=== PATIENT | female | born 1940 | race Caucasian/White ===

== ENCOUNTER 2016-10-29 12:55 | Inpatient (IN) | payer MEDICARE, OTHER ==
--- NOTE | ~2016-10-29 | EGD ---
EGD REPORT [facility] [address] [address] NAME: KATIE POTTER : 40 STATUS : ADM IN PAT#: [id number] AGE: 75 ADM/REG DATE : 10/29/16 MR#: [id number] REPORT SERV DATE: 10/31/16 DICTATED BY: ÁNGEL BALDWIN DATE: 10/31/16 REPORT STATUS : Draft [facility]ANS[facility]ED [facility]: [facility] DATE: 10/31/16 Endoscopy Center Patient Name: Katie Potter Date of : 1940 Attending MD: ÁNGEL BALDWIN MD Procedure Date No Time: 10/31/2016 Procedure: Upper GI endoscopy Indications: Nausea with vomiting Referring MD: ÁNGEL PAULINO III Medicines: Monitored Anesthesia Care Complications: No immediate complications. Estimated blood loss: Minimal. Procedure: Pre-Anesthesia Assessment: - ASA Grade Assessment: III - A patient with severe systemic disease. After obtaining informed consent, the endoscope was passed under direct vision. Throughout the procedure, the patient's blood pressure, pulse, and oxygen saturations were monitored continuously. The GIF [id number] was introduced through the mouth, and advanced to the second part of duodenum. The upper GI endoscopy was accomplished without difficulty. The patient tolerated the procedure well. Findings: The examined esophagus was normal. A small hiatus hernia was present. Normal mucosa was found in the entire examined stomach. Biopsies were taken with a cold forceps for Helicobacter pylori testing. Estimated blood loss was minimal. The examined duodenum was normal. Biopsies were taken with a cold forceps for evaluation of celiac disease. Estimated blood loss was minimal. The exam was otherwise without abnormality. Impression: - Hiatus hernia. - Normal mucosa was found in the entire stomach. Biopsied. - Normal examined duodenum. Biopsied. - The examination was otherwise normal. Recommendation: - Return patient to [facility] for [facility] care. - Clear liquid diet today. - Await pathology results. - Perform a small bowel follow through today. EGD REPORT [facility] [address] [place] [address]. [id number] NAME: KATIE POTTER : [birth year] STATUS : ADM IN [facility]#: [id number] AGE: 75 ADM/REG DATE : 10/29/16 MR#: [id number] REPORT SERV DATE: 10/31/16 DICTATED BY: ÁNGEL BALDWIN DATE: 10/31/16 REPORT STATUS : Draft TRANSCRIBED BY: [employer] [facility] DATE: 10/31/16 Procedure Code(s): --- Professional --- 00083, Esophagogastroduodenoscopy, flexible, transoral; with biopsy, single or multiple Diagnosis Code(s): --- Professional --- K44.9, Diaphragmatic hernia without obstruction or gangrene R11.2, Nausea with vomiting, unspecified CPT copyright 2013 [employer]. All rights reserved. The codes documented in this report are preliminary and upon flight engineer helicopter review may be revised to meet current compliance requirements. Ángel Baldwin MD ÁNGEL BALDWIN MD 10/31/2016 7:49 AM This report has been signed electronically. Number of Addenda: 0 Note Initiated On: 10/31/2016 7:18 AM Scope Withdrawal Time 0 hours 0 minutes 0 seconds [address] [place] [address]
--- NOTE | ~2016-10-29 | CN ---
Consultation Report [facility] [address] [place]. [address] NAME: CARLOS POTTER : 40 STATUS : ADM IN PAT#: [id number] AGE: 75 ADM/REG DATE : 10/29/16 MR#: [id number] REPORT SERV DATE: 10/30/16 DICTATED BY: ELIANE SOUZA DATE: 10/30/16 REPORT STATUS : Draft TRANSCRIBED BY: MODL DATE: 10/30/16 GI CONSULTATION DATE OF CONSULTATION: 10/30/2016 REASON FOR CONSULTATION: Evaluation and management of intractable nausea, vomiting, weight loss. HISTORY OF PRESENT ILLNESS: Ms. Potter is a very pleasant 75-year-old female patient, who is known to Dr. Clark Sorenson in the outpatient setting, who presents to [facility] with the above complaints. She was seen at her primary care physician's office, Dr. Gutierres, yesterday secondary to nausea and vomiting with an ongoing evaluation by her primary care physician thus far being inconclusive. She reports that she has had chronic intermittent nausea since 12/2015, which she states began shortly after beginning radiation therapy secondary to right breast cancer. Within the last month, she has had a negative CT scan done by Dr. Gutierres in the outpatient setting. She had a gastric emptying study, which showed that she had abnormal emptying up to three hours; however, in the fourth hour, it was reported as normal. She had an abdominal x-ray on admission here, which showed a nonspecific bowel gas pattern, question some mild aerophagia as well as questionable gastroenteritis. She states that she has had a 10-pound weight loss over the last several months. She denies any fever or chills. She has chronic constipation, which she takes daily stool softeners for. She denies any associated abdominal pain. She states she has some soreness in the epigastric area. She describes a discomfort similar to bloating, no desire to eat. She denies chest pain or shortness of breath. She has been seen by Dr. Jackson secondary to complaints of weakness and thus far negative workup and stress test was planned, she is scheduled for that today in the inpatient setting. I have talked to the patient as well as her , who is present at the bedside. We will plan on upper endoscopy tomorrow given that the stress test is normal. I did discuss the risks, the benefits, alternatives, and complications with them to include, but not limited to risk of bleeding, perforation, infection, reaction to medications, as well as cardiac and pulmonary side effects. They are agreeable to proceed. Her last upper endoscopy was done at [facility] on 02/25/2013 with findings of non-bleeding erosive gastropathy, normal duodenum, she had biopsies taken that were negative for celiac disease, negative for H pylori, and everything was within normal limits. Her last colonoscopy was done at [facility] in 04/2016 secondary to lower GI bleeding with johnson-diverticulosis being seen and no active bleeding, bleeding was felt to be secondary to diverticular bleed. PAST MEDICAL HISTORY: Positive for type 2 diabetes; peripheral neuropathy; hyperlipidemia; hypothyroidism; obstructive sleep apnea with CPAP usage; degenerative disk disease; osteoarthritis; chronic migraines with Excedrin use; diverticulosis with diverticular bleed, 04/2016; breast cancer of the left breast in 1999; right breast cancer, recent diagnosis, 12/2015, status post lumpectomy, lymph node dissection, and radiation; hiatal hernia. PAST SURGICAL HISTORY: Partial colectomy secondary to polyps, cholecystectomy, hysterectomy, Consultation Report [place] [id number] [facility] [place]. [address] NAME: CARLOS POTTER : 40 STATUS : ADM IN [facility]#: [id number] AGE: 75 ADM/REG DATE : 10/29/16 MR#: [id number] REPORT SERV DATE: 10/30/16 DICTATED BY: ELIANE SOUZA DATE: 10/30/16 REPORT STATUS : Draft TRANSCRIBED BY: JOY DATE: 10/30/16 breast lumpectomy. FAMILY HISTORY: Noncontributory from a GI standpoint. SOCIAL HISTORY: She is and lives independently. Denies alcohol, tobacco, or illicits. Past tobacco use. ALLERGIES: LISTED TO SULFA, PENICILLIN, CODEINE. HOME MEDICATIONS: Advair, aspirin, CoQ10 enzyme, B12, omeprazole, EpiPen, fluticasone, Gas- X, Januvia, Synthroid, magnesium, meclizine, MegaRed, omega-3, melatonin, metformin, Reglan, Singulair, multivitamin, Zofran, pilocarpine, MiraLax, pravastatin, ProAir, prochlorperazine, Proventil, stool softener, Systane, tramadol, vitamin C. REVIEW OF SYSTEMS: A 10-point review of systems has been obtained with pertinent positives being addressed in the history of present illness. PERTINENT LABORATORY DATA: Sodium is 138, potassium is 4, BUN is 9, creatinine 0.72. White count is 11.4, hemoglobin 14, hematocrit 41.5, platelet count 250. Prealbumin 22.4. PHYSICAL EXAMINATION: VITAL SIGNS: Temperature is 98.6, pulse 64, respirations 20, blood pressure 143/63. NEURO: Reveals an alert female, resting in bed with no focal deficits. GENERAL: Cooperative, in no apparent distress. Awake, alert, and oriented x3. HEAD, EARS, EYES, NOSE, AND THROAT: Anicteric. Pupils equal, round, reactive to light and accommodation. Normocephalic and atraumatic. NECK: No JVD. No palpable nodes. Supple. LUNGS: Clear anteriorly with normal respiratory effort exhibited. Equal expansion. CARDIOVASCULAR SYSTEM: Regular rate and rhythm. S1 and S2. No murmurs, rubs, gallops, S3, or S4 appreciated. ABDOMEN: Soft, nondistended. Very mild tenderness to epigastric region, described as soreness per the patient. Active bowel sounds in all four quadrants with no rebound, guarding, or organomegaly appreciated. EXTREMITIES: No edema. Normal distal pulses. SKIN: Warm, dry, and intact. ASSESSMENT: 1. Nausea, acute on chronic. 2. Acute emesis. 3. Type 2 diabetes with questionable gastroparesis. 4. History of breast cancer with recurrence, status post XRT in 12/2015. 5. History of lower GI bleed in 04/2016 secondary to diverticular disease. PLAN: Consultation Report [place] [id number] [facility] [place]. [address] NAME: CARLOS POTTER : 40 STATUS : ADM IN [facility]#: [id number] AGE: 75 ADM/REG DATE : 10/29/16 MR#: [id number] REPORT SERV DATE: 10/30/16 DICTATED BY: ELIANE SOUZA DATE: 10/30/16 REPORT STATUS : Draft TRANSCRIBED BY: MODL DATE: 10/30/16 1. Continue Reglan, increase her PPI to b.i.d. 2. Clear liquid diet and n.p.o. after midnight. 3. Follow up stress test results. 4. EGD in the morning if stress test is negative. 5. Other recommendations to follow endoscopy. JUSTUS/JOY Eliane RAMONITA Storm / [id number] CC: Marilu Trotter III, D.O.
--- NOTE | ~2016-10-29 | DS ---
Discharge Summary [facility] [address] [place]. [address] NAME: CARLOS POTTER : 40 STATUS : DIS IN PAT#: [id number] AGE: 75 ADM/REG DATE : 10/29/16 MR#: [id number] REPORT SERV DATE: 11/01/16 DICTATED BY: MEHDI THOMASON DATE: 10/31/16 REPORT STATUS : Draft TRANSCRIBED BY: MODL DATE: 10/31/16 ADMISSION DATE: 10/29/2016 DISCHARGE DATE: 10/31/2016 DISCHARGE DIAGNOSES: 1. Most likely gastroparesis. 2. Type 2 diabetes mellitus. 3. Breast cancer with recurrence, status post chemo and radiation. 4. Lower gastrointestinal bleed in 2016 that was deemed diverticular in nature. 5. Peripheral neuropathy due to diabetes. 6. Hyperlipidemia. 7. Hypothyroidism. 8. Obstructive sleep apnea with CPAP usage. 9. Degenerative disc disease with osteoarthritis. 10.Chronic migraines. 11.Hiatal hernia. CONSULTANTS DURING THIS HOSPITALIZATION: Dr. Ángel Kenney of Gastroenterology. INVASIVE PROCEDURES DONE DURING THIS HOSPITALIZATION: An EGD showed a small clean gastric ulcer that was nonbleeding, no significant esophagitis, hiatal hernia was noted, normal exam in duodenum that was biopsied as well. BRIEF HISTORY OF PRESENT ILLNESS: The patient is a 75-year-old female with recurrent breast cancer, came in with chronic intermittent and recurrent nausea with vomiting as a direct admission from Dr. Gutierres' office, so she was admitted. For detailed history and physical exam, please see note dictated by Dr. Den Tompkins on 10/29/2016. HOSPITAL COURSE: After being admitted to the hospital, this patient was observed. She was given antiemetics, prokinetic agents including Reglan. This patient was seen by Gastroenterology and above evaluation was done. The EGD was normal, so small bowel follow- through was done which remained normal as well. She since had some chest pain, so we did a nuclear stress study which showed no reversible ischemia and normal ejection fraction. This patient is scheduled to have a bone scan and a PET scan done in the outpatient setting, and I have recommended that that be done as scheduled tomorrow as we could not do the bone scan in light of the recent nuclear stress study during this hospitalization. This patient tolerated a GI soft diet prior to discharge without any difficulty. She remained stable otherwise, and is being discharged in stable condition. DISCHARGE DISPOSITION: Home. DISCHARGE ACTIVITY: As tolerated. DISCHARGE DIET: An 1800 calorie [employer] diet. DISCHARGE MEDICATIONS: Advair Diskus 250/50 one puff twice daily; Sarna; Dilaudid 2 mg every Discharge Summary [address] [place]. [address] NAME: CARLOS POTTER : 40 STATUS : DIS IN PAT#: [id number] AGE: 75 ADM/REG DATE : 10/29/16 MR#: [id number] REPORT SERV DATE: 11/01/16 DICTATED BY: MEHDI THOMASON DATE: 10/31/16 REPORT STATUS : Draft TRANSCRIBED BY: JOY DATE: 10/31/16 six hours p.r.n. for pain; Januvia 100 mg once daily; Singulair 10 mg once daily; metformin 1000 mg twice daily; albuterol MDI two puffs every four hours p.r.n.; vitamin B12, 1000 mcg IM once every 7 days; pilocarpine 5 mg p.o. every 6 hours as needed for dry mouth; Reglan 5 mg before each meal; levothyroxine 50 mcg once daily; Flonase 2 sprays each nostril once daily; Celexa 10 mg once daily; Colace 200 mg twice daily; vitamin B12 sublingual 250 mcg once daily; Krill oil; aspirin 81 mg daily; Prilosec 40 mg once daily; gabapentin 100 mg twice daily; epinephrine 0.3 mg p.r.n. for anaphylaxis; and Systane eye drops. DISCHARGE FOLLOWUP: With Dr. Gutierres as previously scheduled. More than 30 minutes were spent in planning this patient's discharge, reconciling medications, discussing hospital care, and follow up with the patient and the at the bedside and documenting this discharge. DICTATED BY: Marilu Trotter/JOY Mehdi Thomason M.D. / [id number] CC: David Tai III, MD
--- NOTE | ~2016-10-29 | HP ---
History And Physical [facility] [address] [place]. [address] NAME: CARLOS POTTER : 40 STATUS : ADM IN [facility]#: [id number] AGE: 75 ADM/REG DATE : 10/29/16 MR#: [id number] REPORT SERV DATE: 10/29/16 DICTATED BY: DAMIEN ORO II DATE: 10/29/16 REPORT STATUS : Draft TRANSCRIBED BY: MODL DATE: 10/29/16 DATE OF ADMISSION: 10/29/2016 PRIMARY ONCOLOGIST: Merritt Morrow MD. PRODUCTION MECHANIC TIN CANS: Mat Jackson M.D. CHIEF COMPLAINT: Intractable nausea and vomiting with weight loss. HISTORY OF PRESENT ILLNESS: The patient is a 75-year-old female with a history of breast cancer currently in remission, diabetes, hyperlipidemia, sleep apnea, and migraines, who presented to [facility] from Dr. Gutierres' office due to intractable nausea and vomiting. According to the patient, she has had chronic recurrent intermittent nausea since December after getting radiation to a right breast after lumpectomy. Dr. Gutierres has been evaluating the patient for the last month or so due to chronic nausea and weight loss, which she says she has lost about [address] Gutierres was concerned maybe she had a recurrence of her breast cancer and reports a normal CT chest, abdomen, and pelvis done in September. He also did a gastric emptying study, which showed abnormal emptying through three hours, however, after the fourth hour was normal. The patient notes she gets bloated and nauseous while eating large meals and has started eating more small frequent meals. She was not having a significant amount of vomiting until this morning when she vomited several times. She denies any abdominal pain, diarrhea, melena, or hematochezia. Denies any hemoptysis or hematemesis. Denies any fevers or chills. She does admit to reflux for which she is on a PPI, and she has a hiatal hernia as well noted in the past. She says over the last few months, she has noted worsening fatigue and is not able to get around like she used to. She has a feeling of fullness like her stomach is pushing up into her chest. Though this is at rest and not exacerbated by exertion and seemed to improve after vomiting. She has seen Dr. Jackson, who actually has a stress test scheduled in [place] for tomorrow in his office, asked if we could go ahead and do it here. She has never had a history of coronary artery disease and apparently had an echo done this past week, which was reportedly normal per the patient's . She also has an appointment to see Dr. Sorenson this week as well, and the patient is requesting to go ahead and see Dr. Sorenson here. Otherwise, the patient denies any chest pain, shortness of breath, dysuria. REVIEW OF SYSTEMS: 10-point review of systems otherwise negative except for HPI. PAST MEDICAL HISTORY: 1. Diabetes mellitus type 2, on oral therapy with peripheral neuropathy. 2. Hyperlipidemia. 3. Hypothyroidism. 4. Obstructive sleep apnea, on CPAP. 5. Arthritis with degenerative disk disease. 6. Chronic migraine headaches on Maxalt and Excedrin. 7. Diverticulosis with diverticular bleeds in the past. 8. Breast cancer of the left breast in 1999 status post lumpectomy and radiation and then History And Physical [address] [address] NAME: CARLOS POTTER : 40 STATUS : ADM IN [facility]#: [id number] AGE: 75 ADM/REG DATE : 10/29/16 MR#: [id number] REPORT SERV DATE: 10/29/16 DICTATED BY: DAMIEN ORO II DATE: 10/29/16 REPORT STATUS : Draft TRANSCRIBED BY: JOY DATE: 10/29/16 diagnosed with a right breast cancer in November 2015 status post lumpectomy, lymph node dissection, and nipple excision. Last radiation was in December and she was on Arimidex, but no longer. 9. Hiatal hernia. SURGERIES: Per above as well as partial colectomy secondary to polyps, cholecystectomy, and hysterectomy. ALLERGIES: SULFA, PENICILLIN, CODEINE ALL OF WHICH CAUSE NAUSEA AND VOMITING. FAMILY HISTORY: Mother had rheumatic fever and multiple eye surgeries. SOCIAL HISTORY: The patient is , lives with her . She did smoke, but apparently quit 30 years ago. Denies any significant alcohol or drug use. HOME MEDICATIONS: Advair, aspirin, coenzyme Q10, B12, omeprazole, EpiPen, fluticasone, Gas- X, Januvia, Synthroid, magnesium, meclizine, MegaRed, omega-3, melatonin, metformin, Reglan, Singulair, multivitamin, Zofran, pilocarpine, MiraLax, pravastatin, ProAir, prochlorperazine, Proventil, stool softener, Systane, tramadol, vitamin C. PHYSICAL EXAMINATION: VITAL SIGNS: Temperature 98.1, pulse 80, blood pressure 135/63, respirations 16. GENERAL: The patient is alert and oriented x3, in no acute distress. NECK: Supple. Nontender. No lymphadenopathy or thyromegaly. HEENT: Moist mucous membranes. Pupils are equal, round, and reactive to light. Conjunctivae clear. RESPIRATORY: Lungs are clear to auscultation bilaterally. No wheezes, rhonchi, or rales. Nonlabored breathing. CARDIOVASCULAR: Regular rate and rhythm. No murmurs, rubs, or gallops. ABDOMEN: Soft, nontender, nondistended. Normoactive bowel sounds. EXTREMITIES: No cyanosis, clubbing, or edema. SKIN: No lesions, rashes, or wounds. NEURO: No focal deficits. LABORATORY DATA: Pending. ASSESSMENT AND PLAN: The patient is a 75-year-old female with: 1. Acute on chronic nausea with new intractable vomiting. In light of the patient's diabetes and abnormal gastric emptying study certainly seems likely she has some degree of gastroparesis. She has an appointment to see Dr. Sorenson this week and requested to see him, so we will go ahead and consult him in case an EGD is indicated. Given recent CT scans does not seem likely related to recurrent disease as no evidence of metastases were noted. At this point, we will provide supportive care with antiemetics, Reglan, IV fluids, and check a pre-albumin for nutritional status. Otherwise given Dr. Jackson was evaluating for possible ischemia. We will go ahead and order the stress test he had planned for tomorrow. 2. Diabetes mellitus type 2. We will hold the patient's metformin, provide sliding scale History And Physical [address] [address] NAME: CARLOS POTTER : 40 STATUS : ADM IN [facility]#: [id number] AGE: 75 ADM/REG DATE : 10/29/16 MR#: [id number] REPORT SERV DATE: 10/29/16 DICTATED BY: DAMIEN ORO II DATE: 10/29/16 REPORT STATUS : Draft TRANSCRIBED BY: JOY DATE: 10/29/16 insulin and continue her Januvia. 3. History of breast cancer, currently in remission. We will recommend follow up with Oncology as an outpatient. 4. Diverticulosis. 5. Obstructive sleep apnea, on CPAP. 6. Chronic migraines. Otherwise, we will continue the patient's home medications. The patient is full code. SUSHMA/JOY Damien Oro II, MD / [id number] CC: MD Ángel Ibarra II, III, D.OCurly
[~2016-10-29 12:55] MED LIST: ACETIC ACID OT; ADVAIR100 INH; ALLERGY INJECTIONS; ARIMIDEX1 PO; ASAB PO; ASTEPRO; ASTEPRO0.15 % NAS; B12250T PO; CALCIUM D; CENTRUM PO; CENTRUM TAB1 TAB PO; CIP5 PO; CLARIT10 PO; EFFEX75 PO; EFFEXOR100 MG PO; EPIPEN; EXCEDRIN EXTRA1 EACH PO; EXCEDRINE MIGRAINE PO; FISH-EPA1000 MG PO; FLAG500TAB PO; FLONASE NAS; FLORASTOR250 MG PO; FOSAMAX70 MG PO; GABARONE300 MG PO; GAS RELIEF; GAS-X80 MG PO; GLUCOPHAGE1000 MG; GLUCOPHAGE1000 MG PO; GLYCOLAX POWDER; HUMI PO; JANUVIA; KAPIDEX60 MG PO; LASTACAFT OP; LEVAQUIN PO; LEVAQUIN5T PO; LEVOTHYROXIN50 MCG PO; LIPITOR10 PO; MAXALT10 MG PO; MCZ25 PO; MELATONIN1 M1 PO; MELATONIN5 M1 PO; METPAKSF; METPAKSF PO; MIRALAXPKT PO; MOBIC7.5 PO; MUCINEX D1 TA1 OR; MUCINEX600 MG PO; NAP500 PO; NASACORT; NASACORTAQ NAS; NEUR300 PO; NEXIUM40 PO; PATADAY; PATADAY OP; PATANOL OPH; PCET PO; PEPTO BISMOL UD30 ML PO; PR25 PO; PRAVAC PO; PROBIOTIC; PROVHFA INH; SALAGEN5 MG PO; SINGULAIR1 PO; SUCR PO; SYMBICORT 160/41 INH INH; SYN.05 PO; SYSTAN1 OP; SYSTANE OPH; T PO; ULTRAM50 PO; UREA 40%; VENLAFAXINE ER; VITAMIN B-121000 MC1 SL; VITAMIN D1000 UNI1 PO; VITAMIN D31000 UNIT PO; VITAMIN E TOP; VITC500 PO; VITE1000; ZOFRAN4 PO; ZOFRAN8 PO; [UNRECOGNIZED DRUG - OTHER]; [UNRECOGNIZED DRUG - OTHER]; [UNRECOGNIZED DRUG - OTHER] PO; [UNRECOGNIZED DRUG - OTHER] PO
[2016-10-29] MEDS ORDERED: SINGULAIR1 PO (14:09)
[2016-10-29] MEDS ORDERED: DIL2TAB PO (14:09)
[2016-10-29] MEDS ORDERED: SARNA (14:09)
[2016-10-29] MEDS ORDERED: JANUVIA100 MG PO (14:09)
[2016-10-29] MEDS ORDERED: GLUCOPHAGE1000 MG PO (14:09)
[2016-10-29] MEDS ORDERED: ADVAIR250 INH (14:09)
[2016-10-29] MEDS ORDERED: B121000P IM (14:10)
[2016-10-29] MEDS ORDERED: REG5 PO (14:10)
[2016-10-29] MEDS ORDERED: PROVHFA INH (14:10)
[2016-10-29] MEDS ORDERED: SALAGEN5 M1 PO (14:10)
[2016-10-29] MEDS ORDERED: CELEXA10 PO (14:11)
[2016-10-29] MEDS ORDERED: B12250T PO (14:11)
[2016-10-29] MEDS ORDERED: LEVOTHYROXIN50 MCG PO (14:11)
[2016-10-29] MEDS ORDERED: D.O.S.100 MG PO (14:11)
[2016-10-29] MEDS ORDERED: FLONASE NAS (14:11)
[2016-10-29] MEDS ORDERED: OMEGA-3 KRILL PO (14:12)
[2016-10-29] MEDS ORDERED: NEUR100 PO (14:12)
[2016-10-29] MEDS ORDERED: HALF81 PO (14:12)
[2016-10-29] MEDS ORDERED: PRILOSEC40 MG PO (14:12)
[2016-10-29] MEDS ORDERED: EPIPEN0.3 IM (14:12)
[2016-10-29] MEDS ORDERED: SYSTANE (14:14)
[2016-10-29 15:06] LABS: BASOPHILS 0.3 %; BASOPHILS ABSOLUTE 0.03 10/3/uL (0.0-0.16); EOSINOPHILS 1.3 %; EOSINOPHILS ABSOLUTE 0.15 10/3/uL (0.0-0.53); HEMATOCRIT 41.5 % (36.0-48.0); IMMATURE GRANULOCYTES ABSOLUTE 0.11 10/3/uL (0.0-0.11); LYMPHOCYTES 15.1 %; LYMPHOCYTES ABSOLUTE 1.72 10/3/uL (0.67-4.30); MEAN CORPUS HGB CONC 33.7 g/dL (32.0-36.0); MEAN CORPUSCULAR HEMOGLOB 31.2 pg (26.0-34.0); MEAN CORPUSCULAR VOLUME 92.4 fL (80-100); MEAN PLATELET VOLUME 10.1 fL (9.2-13.0); MONOCYTES 10.4 %; MONOCYTES ABSOLUTE 1.18 10/3/uL (0.21-1.20); NEUTROPHILS 71.9 %; PLATELET COUNT 250 10/3/uL (150-400); RBC DISTRIBUTION WIDTH 13.9 % (12.0-16.0); RED CELL COUNT 4.49 10/6/uL (4.0-5.6); WHITE BLOOD CELLS 11.4 10/3/uL (4.5-10.5)
[2016-10-29 15:08] LABS: MANUAL DIFF NO %
[2016-10-29 15:49] LABS: A/G RATIO 1.1 (0.7-1.9); ALBUMIN 3.7 G/DL (3.5-5.0); ALKALINE PHOSPHATASE 84 U/L (45-117); BUN (BLOOD UREA NITROGEN) 9 MG/DL (6-23); CALCIUM, SERUM 9.8 MG/DL (8.5-10.4); CHLORIDE, SERUM 105 MMOL/L (96-112); CO2 (CARBON DIOXIDE) 27 MMOL/L (24-34); CREATININE 0.72 MG/DL (0.55-1.02); GFR AFRICAN AMERICAN 95 ML/MIN (>=60); GFR NON AFRICAN AMERICAN 82 ML/MIN (>=60); GLOBULIN 3.3 G/DL (2.5-4.1); PHOSPHORUS, SERUM 3.4 MG/DL (2.5-4.5); PREALBUMIN 22.4 MG/DL (17.0-43.0); SGOT(AST) 16 U/L (5-40); SGPT(ALT) 29 U/L (5-65); SODIUM, SERUM 138 MMOL/L (135-148); TOTAL BILIRUBIN 0.3 MG/DL (0-1.2); TROPONIN I <0.02 NG/ML (<0.05)
[2016-10-29 15:50] LABS: GLUCOSE, SERUM 101 MG/DL (60-99)
[2016-10-31 06:17] LABS: BASOPHILS 0.4 %; BASOPHILS ABSOLUTE 0.03 10/3/uL (0.0-0.16); EOSINOPHILS 2.2 %; EOSINOPHILS ABSOLUTE 0.17 10/3/uL (0.0-0.53); HEMATOCRIT 40.9 % (36.0-48.0); HEMOGLOBIN 13.5 g/dL (12.0-16.0); IMMATURE GRANULOCYTES 0.9 %; IMMATURE GRANULOCYTES ABSOLUTE 0.07 10/3/uL (0.0-0.11); LYMPHOCYTES 16.4 %; LYMPHOCYTES ABSOLUTE 1.25 10/3/uL (0.67-4.30); MEAN CORPUSCULAR HEMOGLOB 30.8 pg (26.0-34.0); MEAN CORPUSCULAR VOLUME 93.4 fL (80-100); MEAN PLATELET VOLUME 10.5 fL (9.2-13.0); MONOCYTES 15.8 %; NEUTROPHILS 64.3 %; NEUTROPHILS ABSOLUTE 4.89 10/3/uL (2.02-8.40); PLATELET COUNT 238 10/3/uL (150-400); RBC DISTRIBUTION WIDTH 13.6 % (12.0-16.0); RED CELL COUNT 4.38 10/6/uL (4.0-5.6); WHITE BLOOD CELLS 7.6 10/3/uL (4.5-10.5)
[2016-10-31 06:18] LABS: MANUAL DIFF NO %
[2016-10-31 06:22] LABS: INTERNATIONAL NORMAL RATI 1.1 UNITS (-)
[2016-10-31 06:30] LABS: ALBUMIN 3.2 G/DL (3.5-5.0); BUN (BLOOD UREA NITROGEN) 6 MG/DL (6-23); CALCIUM, SERUM 9.1 MG/DL (8.5-10.4); CHLORIDE, SERUM 108 MMOL/L (96-112); CO2 (CARBON DIOXIDE) 28 MMOL/L (24-34); CREATININE 0.77 MG/DL (0.55-1.02); GFR AFRICAN AMERICAN 88 ML/MIN (>=60); GFR NON AFRICAN AMERICAN 76 ML/MIN (>=60); POTASSIUM, SERUM 3.8 MMOL/L (3.5-5.3); SODIUM, SERUM 141 MMOL/L (135-148)
[2016-10-31 06:31] LABS: GLUCOSE, SERUM 123 MG/DL (60-99)
== END 2016-10-31 16:27 | disposition home or self-care (01) | DRG 74 ==
LOC: 4SO 12:55
PROVIDERS: Internal Medicine; Internal Medicine Gastroenterology; Nurse Practitioner Family
PROC: 0DB98ZX Excision of Duodenum, Via Natural or Artificial Opening Endoscopic, Diagnostic (ICD-10-PCS; 2016-10-31)
PROC: 0DB68ZX Excision of Stomach, Via Natural or Artificial Opening Endoscopic, Diagnostic (ICD-10-PCS; principal; 2016-10-31 07:30)
DX: E11.43 Type 2 diabetes mellitus with diabetic autonomic (poly)neuropathy (principal); K31.84 Gastroparesis; G47.33 Obstructive sleep apnea (adult) (pediatric); K57.90 Diverticulosis of intestine, part unspecified, without perforation or abscess without bleeding; G43.909 Migraine, unspecified, not intractable, without status migrainosus; E11.42 Type 2 diabetes mellitus with diabetic polyneuropathy; E03.9 Hypothyroidism, unspecified; E78.5 Hyperlipidemia, unspecified; M19.90 Unspecified osteoarthritis, unspecified site; K44.9 Diaphragmatic hernia without obstruction or gangrene; Z85.3 Personal history of malignant neoplasm of breast; Z92.3 Personal history of irradiation; Z87.891 Personal history of nicotine dependence; Z79.84 Long term (current) use of oral hypoglycemic drugs; Z79.82 Long term (current) use of aspirin; Z88.2 Allergy status to sulfonamides; Z88.0 Allergy status to penicillin; Z88.5 Allergy status to narcotic agent; Z92.21 Personal history of antineoplastic chemotherapy
CPT/HCPCS: 74020; 74250; 78452; 80053; 80069; 82962; 83036; 83735; 84100; 84134; 84443; 84484; 85025; 85610; 88305; 93005; 93017; 94640; 96372; A9270-GY; A9502; G0463; J0153

== ENCOUNTER 2016-11-19 12:28 | Emergency (ER) | payer MEDICARE, OTHER ==
[~2016-11-19 12:28] MED LIST changes: +ADVAIR250 INH; +B121000P IM; +CELEXA10 PO; +D.O.S.100 MG PO; +DIL2TAB PO; +EPIPEN0.3 IM; +HALF81 PO; +JANUVIA100 MG PO; +NEUR100 PO; +OMEGA-3 KRILL PO; +PRILOSEC40 MG PO; +REG5 PO; +SALAGEN5 M1 PO; +SARNA; +SYSTANE
[2016-11-19 12:41] LABS: BASOPHILS 0.3 %; BASOPHILS ABSOLUTE 0.03 10/3/uL (0.0-0.16); EOSINOPHILS 1.1 %; EOSINOPHILS ABSOLUTE 0.13 10/3/uL (0.0-0.53); HEMATOCRIT 40.2 % (36.0-48.0); HEMOGLOBIN 12.8 g/dL (12.0-16.0); IMMATURE GRANULOCYTES 0.9 %; LYMPHOCYTES 7.5 %; LYMPHOCYTES ABSOLUTE 0.86 10/3/uL (0.67-4.30); MEAN CORPUS HGB CONC 31.8 g/dL (32.0-36.0); MEAN CORPUSCULAR HEMOGLOB 30.5 pg (26.0-34.0); MEAN CORPUSCULAR VOLUME 95.9 fL (80-100); MEAN PLATELET VOLUME 10.4 fL (9.2-13.0); MONOCYTES 6.3 %; MONOCYTES ABSOLUTE 0.72 10/3/uL (0.21-1.20); NEUTROPHILS 83.9 %; NEUTROPHILS ABSOLUTE 9.56 10/3/uL (2.02-8.40); PLATELET COUNT 262 10/3/uL (150-400); RBC DISTRIBUTION WIDTH 13.4 % (12.0-16.0); RED CELL COUNT 4.19 10/6/uL (4.0-5.6)
[2016-11-19 12:42] LABS: ER CBC TAT 0 Hrs 05 Mins; MANUAL DIFF NO %; WHITE BLOOD CELLS 11.4 10/3/uL (4.5-10.5)
[2016-11-19 12:57] LABS: INTERNATIONAL NORMAL RATI 1.1 UNITS (-); PARTIAL THROMBO TIME 30.3 SEC (22.5-37.2); PROTIME (NOT ORD) 14.1 SEC (12.0-14.5)
[2016-11-19 13:00] LABS: BUN (BLOOD UREA NITROGEN) 8 MG/DL (6-23); CALCIUM, SERUM 9.3 MG/DL (8.5-10.4); CHEST PAIN PROFILE TAT 0 Hrs 23 Mins; CHLORIDE, SERUM 106 MMOL/L (96-112); CO2 (CARBON DIOXIDE) 26 MMOL/L (24-34); CREATININE 0.61 MG/DL (0.55-1.02); GFR AFRICAN AMERICAN 103 ML/MIN (>=60); GFR NON AFRICAN AMERICAN 89 ML/MIN (>=60); GLUCOSE, SERUM 147 MG/DL (60-99); SODIUM, SERUM 139 MMOL/L (135-148); TROPONIN I <0.02 NG/ML (<0.05)
== END 2016-11-19 15:38 | disposition home or self-care (01) ==
LOC: ER 12:28
PROVIDERS: Emergency Medicine
DX: R07.89 Other chest pain (principal); G47.30 Sleep apnea, unspecified; E11.9 Type 2 diabetes mellitus without complications; Z88.6 Allergy status to analgesic agent; Z88.0 Allergy status to penicillin; Z88.8 Allergy status to other drugs, medicaments and biological substances; Z88.5 Allergy status to narcotic agent; Z91.038 Other insect allergy status; Z79.891 Long term (current) use of opiate analgesic; Z79.84 Long term (current) use of oral hypoglycemic drugs; Z79.82 Long term (current) use of aspirin; Z79.899 Other long term (current) drug therapy
CPT/HCPCS: 71020; 80048; 83735; 84484; 85025; 85610; 85730; 93005; 96372; 99285; J2800